=== PATIENT | male | born 1980 | race Caucasian/White ===

== ENCOUNTER → 2016-12-08 | Outpatient (CLI) | payer BC ==
[~2016-12-08] MED LIST: ONDA4TAB10 SL; OXYC1TAB3 PO; POTA1080 PO; TAMS0.4C38 PO
== END | disposition home or self-care (01) ==
LOC: C.PATHSPEC 15:51
PROVIDERS: ATTEND Urology
DX: Z30.2 Encounter for sterilization (principal)

== ENCOUNTER 2017-05-21 17:02 | Emergency (ER) | payer BC ==
[~2017-05-21] VITALS: Ht 185.4 cm; Wt 124.6 kg
[~2017-05-21 17:02] MED LIST changes: -ONDA4TAB10 SL; -OXYC1TAB3 PO; -TAMS0.4C38 PO
[2017-05-21 17:09] VITALS: TEMP 36.8; Ht 185.4 cm; Wt 124.6 kg
[2017-05-21] MEDS ORDERED: KETOROLAC TROMETHAMINE 30 MG/ML VIAL IV STA (17:19)
[2017-05-21 17:48] LABS: HEMATOCRIT 47.8 % (42-52); MEAN CELL VOLUME 88.8 fL (80-100); MEAN CORPUSCULAR HEMOGLOBIN 31.8 pg (25-34); MEAN CORPUSCULAR HGB CONC 35.8 g/dl (32-36); MEAN PLATELET VOLUME 10.1 fL (7.4-10.4); PLATELET COUNT 219 K/uL (130-400); RED BLOOD COUNT 5.38 M/uL (4.7-6.1); WHITE BLOOD COUNT 9.32 K/uL (4.8-10.8)
[2017-05-21 18:01] LABS: URINE APPEARANCE TURBID (CLEAR); URINE COLOR ORANGE; URINE NITRITE NEG (NEG); URINE SPECIFIC GRAVITY 1.028 (1.000-1.030); UROBILINOGEN NEG (NEG); ZZUR CULT IF INDIC CLEAN CATCH YES
[2017-05-21 18:05] LABS: BUN/CREATININE RATIO 11.3 (10-20); CALCIUM 9.4 mg/dl (8.5-10.1); POTASSIUM 3.9 mmol/L (3.5-5.1)
[2017-05-21 18:07] LABS: MANUAL MICROSCOPIC REQUIRED? NO; REVIEW REQ? YES; URINE BILIRUBIN NEG (NEG)
--- NOTE | 2017-05-21 19:21 | DIAGNOSTIC IMAGING REPORT ---
(RENAL)RETROPERITONEA COMP HISTORY: Flank pain right flank pain COMPARISON: None. FINDINGS: Right kidney: Mild fullness right renal collecting system. A millimeters nonobstructing upper pole calcification. Maximum linear dimension 12.8 cm. Normal corticomedullary differentiation and cortical thickness. Left kidney: Maximum dimension 14.0 cm. No evidence for hydronephrosis. Normal corticomedullary differentiation and cortical thickness. Bladder: No bladder wall thickening. A left ureteral jets was identified. IMPRESSION: 1. Mild fullness right renal collecting system versus mild hydronephrosis. 2. 8 mm nonobstructing calcification mid to upper aspect right kidney. 3. Negative left kidney. The above report was generated using voice recognition software. It may contain grammatical, syntax or spelling errors. Electronically signed by: Eldon Uriostegui M.D. 05/21/2017 7:20 PM Dictated Date/Time: 05/21/2017 7:18 PM
[2017-05-21] MEDS ORDERED: TAMSULOSIN HCL 0.4 MG CAP PO ONE (19:30)
[2017-05-21] MEDS ORDERED: TAMS0.4C38 PO (19:33)
--- NOTE | 2017-05-21 19:36 | EMERGENCY ROOM VISIT NOTE ---
History Report prepared by Amy: Fredis Hutton Under the Supervision of: Dr. Marin Argueta M.D. First contact with patient: 17:14 Chief Complaint: FLANK PAIN Stated Complaint: BACK AND SIDE PAIN History of Present Illness The patient is a 36 year old male who presents to the Emergency Room with complaints of intermittent right flank pain starting a few days ago. He had the onset of his pain while lying down. The pain initially felt as though it was moving. He has pain radiation towards the right groin. He rates a pain intensity of 8/10. He also complains of nausea but denies vomiting. As per , the patient's urine has a dark brown color. He denies any pain with urination. The patient mows grass for work. He has been drinking fluids as normal. He denies fevers, chills, or any other complaints. He has a history of lithotripsy and laser surgery. Source of History: patient Onset: a few days ago Position: other (right flank) Symptom Intensity: 8/10 Timing: intermittent Associated Symptoms: + nausea, No fevers, No chills, No vomiting Review of Systems All systems have been listed, reviewed, and are negative other than those previously mentioned. Please see Additional Medical History Sheet. Past Medical & Surgical Medical Problems: (1) Colonoscopy (2) Kidney stone (3) Lithotripsy (4) stomach problems Family History Diabetes mellitus FHx: cancer FHx: heart disease Social History Smoking Status: Never Smoker Alcohol Use: occasionally Marital Status: Housing Status: lives with family Occupation Status: employed Current/Historical Medications Scheduled Tamsulosin Hcl (Flomax), 0.4 MG PO DAILY Allergies Coded Allergies: No Known Allergies (Unverified , 05/21/17) Physical Exam Vital Signs Date Time Temp Pulse Resp B/P (MAP) Pulse Ox O2 Delivery O2 Flow Rate FiO2 05/21/17 19:45 78 18 143/84 99 05/21/17 18:56 70 18 144/102 96 Room Air 05/21/17 17:09 36.8 88 22 163/107 94 Room Air Physical Exam GENERAL: Patient awake, alert, oriented x 3. Patient follows commands. Patient does not appear toxic. Patient is adequately hydrated and well- nourished. SKIN: No erythema, pallor, cyanosis or rash HEENT: Normal head, pupils equal, reactive to light and accommodation. Ears normal. Oral cavity and posterior pharynx appear normal. Neck: Without adenopathy, no neck vein distention. LUNGS: Clear to auscultation. No wheezes, no rales, no rhonchi. HEART: No murmurs. No gallops. No rubs ABDOMEN: Slight tenderness right flank. No masses, no rebound, no hepatomegaly or splenomegaly. EXTREMITIES: No signs of trauma or infection. NEUROLOGIC: Cranial nerves II-XII within normal limits. No gross motor sensory function deficits. Medical Decision & Procedures ER Provider Diagnostic Interpretation: US results as stated below per my review and radiologist interpretation: (RENAL)RETROPERITONEA COMP HISTORY: Flank pain right flank pain COMPARISON: None. FINDINGS: Right kidney: Mild fullness right renal collecting system. A millimeters nonobstructing upper pole calcification. Maximum linear dimension 12.8 cm. Normal corticomedullary differentiation and cortical thickness. Left kidney: Maximum dimension 14.0 cm. No evidence for hydronephrosis. Normal corticomedullary differentiation and cortical thickness. Bladder: No bladder wall thickening. A left ureteral jets was identified. IMPRESSION: 1. Mild fullness right renal collecting system versus mild hydronephrosis. 2. 8 mm nonobstructing calcification mid to upper aspect right kidney. 3. Negative left kidney. The above report was generated using voice recognition software. It may contain grammatical, syntax or spelling errors. Electronically signed by: Eldon Uriostegui M.D. 05/21/2017 7:20 PM Dictated Date/Time: 05/21/2017 7:18 PM Laboratory Results 05/21/17 17:35 05/21/17 17:35 Test 05/21/17 17:35 Red Blood Count 5.38 M/uL (4.7-6.1) Mean Corpuscular Volume 88.8 fL (80-100) Mean Corpuscular Hemoglobin 31.8 pg (25-34) Mean Corpuscular Hemoglobin Concent 35.8 g/dl (32-36) RDW Standard Deviation 39.9 fL (36.4-46.3) RDW Coefficient of Variation 12.5 % (11.5-14.5) Mean Platelet Volume 10.1 fL (7.4-10.4) Urine Color ORANGE Urine Appearance TURBID (CLEAR) Urine pH 5.0 (4.5-7.5) Urine Specific [place] 1.028 (1.000-1.030) Urine Protein 2+ (NEG) Urine Glucose (UA) NEG (NEG) Urine Ketones NEG (NEG) Urine Occult Blood 3+ (NEG) Urine Nitrite NEG (NEG) Urine Bilirubin NEG (NEG) Urine Urobilinogen NEG (NEG) Urine Leukocyte Esterase SMALL (NEG) Urine WBC (Auto) 10-30 /hpf (0-5) Urine RBC (Auto) >30 /hpf (0-4) Urine Hyaline Casts (Auto) 10-30 /lpf (0-5) Urine Epithelial Cells (Auto) 10-20 /lpf (0-5) Urine Bacteria (Auto) NEG (NEG) Urine Crystals CALCIUM OXALATE (NONE Anion Gap 7.0 mmol/L (3-11) Est Creatinine Clear Calc Drug Dose 139.9 ml/min Estimated GFR () 110.9 Estimated GFR (Non- 95.7 BUN/Creatinine Ratio 11.3 (10-20) Calcium Level 9.4 mg/dl (8.5-10.1) Laboratory results as stated above per my review. Medications Administered Medications (Trade) Dose Ordered Sig/Ada Route Start Time Stop Time Status Last Admin Dose Admin Ketorolac Tromethamine (Toradol Inj) 30 mg NOW STAT IV 05/21/17 17:19 05/21/17 17:21 DC 05/21/17 17:56 30 MG Tamsulosin HCl (Flomax Cap) 0.4 mg NOW ONCE PO 05/21/17 19:30 05/21/17 19:31 DC 05/21/17 19:41 0.4 MG ED Course 1713: Past medical records reviewed. The patient was evaluated in room B07. A complete history and physical examination was performed. 1718: Toradol Inj 30 mg IV 1925: Upon reevaluation, the patient appeared to have improvement of his symptoms. He currently rates a pain intensity of 2-3/10. I discussed today's findings with him. He verbalized agreement of the treatment plan. He was discharged home. 1929: Flomax Cap 0.4 mg PO Medical Decision Medication Reconciliation: I attest that I have personally reviewed the patient' s current medication list. Blood Pressure Screening: Patient was found to have a slightly elevated blood pressure due to circumstances. I do not believe that the patient requires hypertension monitoring. Differential diagnosis includes but is not limited to kidney stone, pyelonephritis, UTI, musculoskeletal pain. Blood work, Urinalysis and ultrasound were obtained. Please see above. The patient has lots of blood in his urine and a few white cells. He has no bacteria. He has calcium oxalate crystals. Ultrasound reveals mild if any hydronephrosis. A ureteral stone was not identified. The patient's pain decreased considerably with IV Toradol. The patient will be discharged home with a strainer. He is to drink extra fluids. He was given a dose of Flomax which he will continue at home. He is to follow-up with urology. Impression Primary Impression: Renal colic Scribe Attestation The scribe's documentation has been prepared under my direction and personally reviewed by me in its entirety. I confirm that the note above accurately reflects all work, treatment, procedures, and medical decision making performed by me. Departure Information Dispostion Home / Self-Care Prescriptions Tamsulosin Hcl (FLOMAX) 0.4 Mg Cap 0.4 MG PO DAILY, #14 CAP Prov: Marin Argueta M.D. 05/21/17 Referrals No Doctor, Assigned (PCP) Forms HOME CARE DOCUMENTATION FORM, IMPORTANT VISIT INFORMATION Patient Instructions ED Stone Renal W Colic, My [facility] Additional Instructions 1 Flomax daily. 600 mg ibuprofen every 6 hours until pain has resolved. You may use narcotic pain medication every 4-6 hours as needed for more severe pain. Do not drive or operate machinery while taking pain medication. Strain your urine. Drink extra fluids. Follow-up with urology. Return here sooner if pain is not controlled with the above measures.
[2017-05-21 19:45] VITALS: BP 143/84; PULSE 78; O2SAT 99
--- NOTE | 2017-05-23 13:29 | Pharmacy Progress Note ---
ED Pharmacist Culture FollowUp Date of Service: May 23, 2017. Patient's urine cx from 05/21 is growing 30,000 CFU/mL GBS. He had been seen for c/o R flank pain. US revealed a 8mm non-obstructing calculus of mid-upper R kidney. His UA was not suggestive of infection: zero bacteria, 10-20 epis He was afebrile, non-toxic appearing, no leukocytosis on labs, no dysuria, no fever/chills - not suggestive of infection GBS is not a common cause of male UTI. I reviewed the case with Dr Argueta. Given his 8mm calculus and unknown significance of this organism, the decision was made to treat as this is potential bacteruria in a patient who may need urologic intervention. Spoke with the patient over phone. He has not seen Dr Sexton yet and he plans to call for an appointment. Currently he is afebrile, no chills, no dysuria. He requested Rx be called to [facility] ([phone]). Rx for Amoxil 500mg PO TID x 7 days called.
== END 2017-05-21 19:46 | disposition home or self-care (01) ==
LOC: C.EDB 17:05
DX: N20.0 Calculus of kidney (principal); R10.9 Unspecified abdominal pain